=== PATIENT | female | born 1970 | race Caucasian/White ===

== ENCOUNTER → 2018-01-03 | Outpatient (CLI) | payer MEDICARE, MEDICAID ==
[~2018-01-03] MED LIST: ATIVAN1 MG PO; CYCLOBENZAPRINE5 MG PO; DEPAKOTE ER500 MG PO; LEVOTHYROXIN0.025 MG PO; LEXAPRO20 MG PO; LISINOPRIL2.5 MG PO; NORCO 5-325 TA1 EACH PO
[2018-01-03 13:56] LABS: CALCIUM 8.3 mg/dL (8.5-10.1); CREATININE 1.8 mg/dL (0.6-1.3); POTASSIUM 3.9 mmol/L (3.5-5.1)
== END ==
LOC: M.LAB 13:09
PROVIDERS: Internal Medicine Nephrology
DX: N18.3 Chronic kidney disease, stage 3 (moderate) (principal)

== ENCOUNTER → 2018-01-24 | Outpatient (CLI) | payer MEDICARE, MEDICAID | LOC: M.NUC 01-13 11:53 | DX: K76.9 Liver disease, unspecified (principal); N18.3 Chronic kidney disease, stage 3 (moderate); M79.89 Other specified soft tissue disorders ==

== ENCOUNTER → 2018-04-28 | Outpatient (CLI) | payer MEDICARE, MEDICAID ==
[2018-04-28 11:51] LABS: HEMATOCRIT 35.9 % (37.0-47.0); MCH 32.6 pg (26.0-34.0); MCHC 33.4 g/dL (28.0-37.0); MCV 97.7 fL (80.0-100.0); MPV 7.4 fl. (7.2-11.1); RBC 3.67 mil/uL (4.20-5.00); RDW-CV 12.4 % (10.5-14.5); WBC 4.9 thou/uL (4.0-11.0)
[2018-04-28 12:10] LABS: ALBUMIN 2.6 g/dL (3.4-5.0); ALKALINE PHOSPHATASE 58 U/L (46-116); AMMONIA < 10 umol/L (11-32); ANION GAP 7 mmol/L (7-16); BUN 30 mg/dL (7-18); CALCIUM 8.2 mg/dL (8.5-10.1); CHLORIDE 101 mmol/L (98-107); CO2 29 mmol/L (21-32); CREATININE 2.5 mg/dL (0.6-1.3); GLUCOSE 100 mg/dL (70-99); POTASSIUM 4.3 mmol/L (3.5-5.1); SGOT 15 U/L (15-37); SGPT 13 U/L (30-65); SODIUM 137 mmol/L (136-145); TOTAL BILIRUBIN 0.3 mg/dL (<0.1-1.0); TOTAL PROTEIN 6.5 g/dL (6.4-8.2)
== END ==
LOC: M.LAB 11:17
PROVIDERS: Psychiatry & Neurology Addiction Medicine
DX: F31.10 Bipolar disorder, current episode manic without psychotic features, unspecified (principal); I10 Essential (primary) hypertension; E03.9 Hypothyroidism, unspecified; E09.65 Drug or chemical induced diabetes mellitus with hyperglycemia

== ENCOUNTER → 2018-05-12 | Outpatient (CLI) | payer MEDICARE, MEDICAID ==
[2018-05-12 11:42] LABS: CALCIUM 8.5 mg/dL (8.5-10.1); CREATININE 2.4 mg/dL (0.6-1.3); POTASSIUM 4.5 mmol/L (3.5-5.1)
== END ==
LOC: M.LAB 10:55
DX: I12.9 Hypertensive chronic kidney disease with stage 1 through stage 4 chronic kidney disease, or unspecified chronic kidney disease (principal); N18.3 Chronic kidney disease, stage 3 (moderate); Z88.8 Allergy status to other drugs, medicaments and biological substances

== ENCOUNTER → 2018-08-21 | Outpatient (CLI) | payer MEDICARE, MEDICAID ==
[2018-08-21 15:51] LABS: ABSOLUTE LYMPHOCYTES 1.4 thou/uL (0.8-5.3); ABSOLUTE MONOCYTES 0.3 thou/uL (0.0-1.2); ABSOLUTE NEUTROPHILS 2.7 thou/uL (1.6-8.1); BASOPHILS 0.9 %; EOSINOPHILS 0.9 %; HEMATOCRIT 35.3 % (37.0-47.0); HEMOGLOBIN 11.9 gm/dL (12.0-15.0); LYMPHOCYTES 31.6 %; MCH 32.7 pg (26.0-34.0); MCHC 33.9 g/dL (28.0-37.0); MCV 96.5 fL (80.0-100.0); MONOCYTES 6.5 %; MPV 7.4 fl. (7.2-11.1); NUCLEATED RBCS 0 /100WBC; PLATELET COUNT* 198 thou/uL (150-400); POLYS 60.1 %; RBC 3.65 mil/uL (4.20-5.00); WBC 4.5 thou/uL (4.0-11.0)
[2018-08-21 16:12] LABS: ALBUMIN 2.8 g/dL (3.4-5.0); CALCIUM 8.1 mg/dL (8.5-10.1); CREATININE 2.2 mg/dL (0.6-1.3); PHOSPHORUS* 3.4 mg/dL (2.5-4.9); POTASSIUM 4.1 mmol/L (3.5-5.1)
== END ==
LOC: M.LAB 15:23
PROVIDERS: Internal Medicine Nephrology
DX: I12.9 Hypertensive chronic kidney disease with stage 1 through stage 4 chronic kidney disease, or unspecified chronic kidney disease (principal); N18.4 Chronic kidney disease, stage 4 (severe); R80.9 Proteinuria, unspecified; E03.9 Hypothyroidism, unspecified

== ENCOUNTER → 2018-11-17 | Outpatient (CLI) | payer MEDICARE, MEDICAID ==
[2018-11-17 09:24] LABS: HEMATOCRIT 37.9 % (37.0-47.0); HEMOGLOBIN 12.9 gm/dL (12.0-15.0); MCH 32.6 pg (26.0-34.0); MCHC 33.9 g/dL (28.0-37.0); MCV 96.2 fL (80.0-100.0); MPV 7.6 fl. (7.2-11.1); RBC 3.94 mil/uL (4.20-5.00); RDW-CV 12.4 % (10.5-14.5); WBC 4.9 thou/uL (4.0-11.0)
[2018-11-17 09:33] LABS: ALBUMIN 2.7 g/dL (3.4-5.0); CALCIUM 8.2 mg/dL (8.5-10.1); CREATININE 2.3 mg/dL (0.6-1.3); POTASSIUM 4.6 mmol/L (3.5-5.1); TOTAL BILIRUBIN 0.3 mg/dL (<0.1-1.0); TOTAL PROTEIN 6.5 g/dL (6.4-8.2)
== END ==
LOC: M.LAB 09:05
PROVIDERS: Psychiatry & Neurology Addiction Medicine
DX: F33.1 Major depressive disorder, recurrent, moderate (principal)

== ENCOUNTER → 2018-12-25 | Outpatient (CLI) | payer MEDICARE, MEDICAID ==
--- NOTE | 2018-12-25 12:07 | 2DMMODE ---
[place] [address] 2 D/M-MODE ECHOCARDIOGRAM Name: VIDYA BARROSO Room: [facility]#: [id number] Admission: 12/25/18 Attend Phys: Ghazala Macario MD Discharge: Date of : 72 Date of Service: 12/25/18 1206 Report #: [id number] THIS REPORT FOR: //name// APPROVED REPORT Study performed: 12/25/2018 10:27:45 EXAM: Comprehensive 2D, Doppler, and color-flow Echocardiogram Patient Location: Out-Patient BSA: 1.81 HR: 86 bpm BP: 152/95 mmHg Other Information Study Quality: Fair Technically limited study due to patient was unable to lay still. Indications Hypertension/HDD 2D Dimensions IVSd: 9.33 (7-11mm) LVOT Diam: 19.94 (18-24mm) LVDd: 43.45 mm PWd: 9.10 (7-11mm) Ascending Ao: 28.31 (22-36mm) LVDs: 27.34 (25-40mm) Aortic Root: 23.64 mm Volumes Left Atrial Volume (Systole) LA ESV Index: 14.60 mL/m2 Aortic Valve AoV Peak Derik.: 1.97 m/s AO Peak Gr.: 15.49 mmHg LVOT Max P.63 mmHg AO Mean Gr.: 9.16 mmHg LVOT Mean P.11 mmHg LVOT Max V: 1.08 m/s AO V2 VTI: 40.50 cm LVOT Mean V: 0.66 m/s MARLENE (VTI): 1.78 cm2 LVOT V1 VTI: 23.09 cm Mitral Valve E/A Ratio: 1.56 MV Decel. Time: 209.27 ms MV E Max Derik.: 0.93 m/[place] [address] 2 D/M-MODE ECHOCARDIOGRAM Name: VIDYA BARROSO Room: [facility]#: [id number] Admission: 12/25/18 Attend Phys: Ghazala Macario MD Discharge: Date of : 72 Date of Service: 12/25/18 1206 Report #: [id number] MV PHT: 60.69 ms MVA (PHT): 3.63 cm2 TDI E/Lateral E': 7.15 E/Medial E': 7.75 Medial E' Derik.: 0.12 m/s Lateral E' Derik.: 0.13 m/s Pulmonary Valve PV Peak Derik.: 0.97 m/s PV Peak Gr.: 3.78 mmHg Tricuspid Valve RAP Estimate: 5.00 mmHg TR Peak Gr.: 20.82 mmHg RVSP: 25.82 mmHg PA Pressure: 25.82 mmHg Left Ventricle The left ventricle is normal size. There is normal LV segmental wall motion. There is normal left ventricular wall thickness. Left ventricular systolic function is normal. The left ventricular ejection fraction is within the normal range. LVEF is 55-60%. Grade I - abnormal relaxation pattern. Right Ventricle The right ventricle is normal size. The right ventricular systolic function is normal. Atria The left atrium size is normal. The right atrium size is normal. Aortic Valve Aortic valve leaflets are mildly thickened. Mild aortic regurgitation. There is no aortic valvular stenosis. Mitral Valve The mitral valve is normal in structure. There is no mitral valve regurgitation noted. No evidence of mitral valve stenosis. Tricuspid Valve The tricuspid valve is normal in structure. Mild tricuspid regurgitation. Pulmonic Valve The pulmonary valve is normal in structure. There is no [place]mon[place] [address] 2 D/M-MODE ECHOCARDIOGRAM Name: VIDYA BARROSO Room: [facility]#: [id number] Admission: 12/25/18 Attend Phys: Ghazala Macario MD Discharge: Date of : 72 Date of Service: 12/25/18 1206 Report #: [id number] Great Vessels The aortic root is normal in size. IVC is normal in size and collapses >50% with inspiration. Pericardium There is no pericardial effusion. <Conclusion> LVEF is 55-60%. Mild aortic regurgitation. <ELECTRONICALLY SIGNED> By: Yogi Serna MD, [facility] 12/25/181205 05 05 Yogi Serna MD, [facility] /INF
== END ==
LOC: M.CRD 10:24
DX: I08.2 Rheumatic disorders of both aortic and tricuspid valves (principal); I12.9 Hypertensive chronic kidney disease with stage 1 through stage 4 chronic kidney disease, or unspecified chronic kidney disease; N18.4 Chronic kidney disease, stage 4 (severe)

== ENCOUNTER → 2019-01-17 | Outpatient (CLI) | payer MEDICARE, MEDICAID ==
[~2019-01-17] MED LIST changes: +ATIVAN0.5 MG PO; +COLESTIPOL HCL1 G1 PO; +DEPAKOTE ER500 M1 PO; +LASIX 20 MG TAB20 MG PO; +OMEPRAZOLE40 MG PO; +SODIUM BICARBO650 M3 PO
== END ==
LOC: M.RAD 10:39
DX: R60.0 Localized edema (principal); R68.83 Chills (without fever)

== ENCOUNTER → 2019-01-26 | Outpatient (CLI) | payer MEDICARE, MEDICAID ==
[~2019-01-26] MED LIST changes: +SYNTHROID125 MC1 PO
[2019-01-26 13:13] LABS: ALBUMIN 2.9 g/dL (3.4-5.0); CALCIUM 8.3 mg/dL (8.5-10.1); CREATININE 2.1 mg/dL (0.6-1.3); POTASSIUM 4.2 mmol/L (3.5-5.1); TOTAL BILIRUBIN 0.1 mg/dL (<0.1-1.0); TOTAL PROTEIN 6.6 g/dL (6.4-8.2)
== END ==
LOC: M.LAB 12:40
PROVIDERS: Psychiatry & Neurology Addiction Medicine
DX: F31.10 Bipolar disorder, current episode manic without psychotic features, unspecified (principal)

== ENCOUNTER → 2019-01-29 | Day surgery (SDC) | payer MEDICARE, MEDICAID ==
--- NOTE | ~2019-01-29 | OP ---
[facility] [address] [place] [address] OPERATIVE REPORT Name: VIDYA BARROSO Room: [facility].#: [id number] Admission: 01/29/19 Attend Phys: Ashley Lam MD Discharge: Date of : 72 Report #: [id number] THIS REPORT FOR: //name// CC: Ashley Macario DATE OF SERVICE: 01/29/2019 PREOPERATIVE DIAGNOSIS: Anal skin tags. POSTOPERATIVE DIAGNOSIS: Anal skin tags. OPERATIVE PROCEDURE: Excision of anal skin tags using ligature. ANESTHESIA: General endotracheal with 0.5% Marcaine with 1:2 epinephrine infiltrated into the operative site. OPERATIVE PROCEDURE: The patient was placed under general endotracheal anesthesia, placed in a prone position with the gluteal folds taped apart and the perianal orifice was prepped and draped in a sterile fashion. A timeout was taken. IV antibiotic was administered. I began by identifying a large right-sided anal skin tag in the posterior location. It was infiltrated with Marcaine, epinephrine mixture and grasped with small pickups. I then used a ligature to amputate the entire tag till the entrance into the anal verge. A posterior small one was identified, the tail was infiltrated and then amputated with ligature as well. Once it was completed, bleeding points were controlled with cautery. I then placed sponges and ABD pad at the end of the operative procedure. ESTIMATED BLOOD LOSS: 1 mL. The patient was extubated and returned to recovery in stable condition. By: 1317 [id number] Lam MD /nt
--- NOTE | 2019-01-29 07:35 | H ---
[place] [address] HISTORY AND PHYSICAL Name: VIDYA BARROSO Room: [facility]..#: [id number] Admission: Attend Phys: Ashley Lam MD Discharge: Date of : 72 Report #: [id number] THIS REPORT FOR: //name// CC: Ashley Macario ADMITTING DIAGNOSIS: Anal skin tags. HISTORY OF PRESENT ILLNESS: The patient is a 48-year-old female who presents to my office with bothersome anal skin tags, sent by her primary care physician for bleeding and staining and so she was referred for surgical management. PAST MEDICAL HISTORY: Includes hypertension and hypothyroidism. PAST SURGICAL HISTORY: She reports no prior surgical history. MEDICATIONS: Omeprazole, Lasix, Synthroid, lorazepam, divalproex, and lisinopril. SOCIAL HISTORY: She does not have a history of tobacco or alcohol use or abuse. REVIEW OF SYSTEMS: She has no active history of abdominal pain, chest pain, skin changes, cough or dyspnea. PHYSICAL EXAMINATION: GENERAL: She is well developed, well nourished, sitting up well in bed with an assistive device, cane because the patient is legally blind. HEAD, EARS, EYES, NOSE AND THROAT: Unremarkable. NECK: Supple. Normal size. LUNGS: Clear. CARDIAC: Regular rate and rhythm without murmur. ABDOMEN: Soft, nontender. On her rectal exam, large anal skin tag was identified with 2 smaller ones. NEUROLOGIC: She is oriented to person, place and time. IMPRESSION AND PLAN: Residual anal skin tags. I have outlined surgical excision and its risks and benefits and answered her questions. She understands and wishes to proceed with surgical treatment. <ELECTRONICALLY SIGNED> By: Ashley Lam MD 01/29/19 0735 [id number] [id number] Lam MD /nt
[2019-01-29 11:48] LABS: HEMATOCRIT 37.5 % (37.0-47.0); HEMOGLOBIN 12.7 gm/dL (12.0-15.0)
[2019-01-29 11:54] LABS: CALCIUM 8.2 mg/dL (8.5-10.1); CREATININE 2.1 mg/dL (0.6-1.3); POTASSIUM 4.4 mmol/L (3.5-5.1)
--- NOTE | 2019-01-29 17:08 | EKG ---
[place] [address] ELECTROCARDIOGRAM REPORT Name: VIDYA BARROSO Room: [facility]#: [id number] Admission: 01/29/19 Attend Phys: Ashley Lam MD Discharge: Date of : 72 Report #: [id number] THIS REPORT FOR: //name// [facility] Test Date: 2019-01-29 Test Time: 11:41:25 Pat Name: VIDYA BARROSO Department: Room: Gender: F [employer]: : 1970 Requested By: Ashley Lam Order Number: [id number] Reading MD: Yogi Serna Measurements Intervals [place] Rate: 78 P: -46 GA: 115 QRS: 4 QRSD: 72 T: 37 QT: 352 QTc: 401 Interpretive Statements Sinus or ectopic atrial rhythm Borderline short GA interval No previous ECG available for comparison Electronically Signed On 01-29-2019 17:08:20 CDT by Yogi Serna [email or web address] <ELECTRONICALLY SIGNED> By: Yogi Serna MD, [facility] 01/29/19 1708 1141 1141 Yogi Serna MD, FACC /EPI
== END | disposition home or self-care (01) ==
LOC: M.SUR 06:29
PROVIDERS: Surgery
DX: K64.4 Residual hemorrhoidal skin tags (principal); I10 Essential (primary) hypertension; E03.9 Hypothyroidism, unspecified; Z79.899 Other long term (current) drug therapy; Z88.8 Allergy status to other drugs, medicaments and biological substances

== ENCOUNTER → 2019-06-27 | Outpatient (CLI) | payer MEDICARE, MEDICAID ==
[2019-06-27 13:47] LABS: CALCIUM 8.8 mg/dL (8.5-10.1); CREATININE 2.6 mg/dL (0.6-1.3); PHOSPHORUS* 4.6 mg/dL (2.5-4.9); POTASSIUM 4.6 mmol/L (3.5-5.1)
[2019-06-27 13:54] LABS: CALCIUM 8.8 mg/dL (8.5-10.1); CREATININE 2.6 mg/dL (0.6-1.3); PHOSPHORUS* 4.7 mg/dL (2.5-4.9)
== END ==
LOC: M.LAB 13:13
DX: N18.4 Chronic kidney disease, stage 4 (severe) (principal)

== ENCOUNTER → 2019-10-24 | Outpatient (CLI) | payer MEDICARE, MEDICAID ==
[2019-10-24 11:23] LABS: ABSOLUTE LYMPHOCYTES 1.6 thou/uL (0.8-5.3); ABSOLUTE MONOCYTES 0.4 thou/uL (0.0-1.2); ABSOLUTE NEUTROPHILS 2.6 thou/uL (1.6-8.1); BASOPHILS 0.7 %; EOSINOPHILS 0.9 %; HEMATOCRIT 32.7 % (37.0-47.0); HEMOGLOBIN 11.2 gm/dL (12.0-15.0); LYMPHOCYTES 34.3 %; MCH 31.7 pg (26.0-34.0); MCHC 34.3 g/dL (28.0-37.0); MCV 92.5 fL (80.0-100.0); MONOCYTES 7.5 %; MPV 7.5 fl. (7.2-11.1); NUCLEATED RBCS 0 /100WBC; PLATELET COUNT* 166 thou/uL (150-400); POLYS 56.6 %; RBC 3.54 mil/uL (4.20-5.00); WBC 4.7 thou/uL (4.0-11.0)
[2019-10-24 11:48] LABS: ALBUMIN 2.9 g/dL (3.4-5.0); CALCIUM 7.9 mg/dL (8.5-10.1); CREATININE 2.5 mg/dL (0.6-1.3); PHOSPHORUS* 3.8 mg/dL (2.5-4.9); POTASSIUM 4.6 mmol/L (3.5-5.1)
== END ==
LOC: M.LAB 10:43
PROVIDERS: Nurse Practitioner Family
DX: N18.4 Chronic kidney disease, stage 4 (severe) (principal); R80.9 Proteinuria, unspecified

== ENCOUNTER → 2020-01-02 | Outpatient (CLI) | payer MEDICARE, MEDICAID ==
[2020-01-02 14:15] LABS: ABSOLUTE EOSINOPHILS 0.1 thou/uL (0.0-0.7); ABSOLUTE LYMPHOCYTES 1.4 thou/uL (0.8-5.3); ABSOLUTE MONOCYTES 0.2 thou/uL (0.0-1.2); ABSOLUTE NEUTROPHILS 2.8 thou/uL (1.6-8.1); BASOPHILS 0.7 %; EOSINOPHILS 2.4 %; HEMATOCRIT 33.4 % (37.0-47.0); HEMOGLOBIN 11.3 gm/dL (12.0-15.0); MCH 31.1 pg (26.0-34.0); MCV 91.6 fL (80.0-100.0); MONOCYTES 5.4 %; MPV 7.6 fl. (7.2-11.1); NUCLEATED RBCS 0 /100WBC; PLATELET COUNT* 227 thou/uL (150-400); POLYS 61.5 %; RBC 3.64 mil/uL (4.20-5.00); RDW-CV 12.9 % (10.5-14.5); WBC 4.5 thou/uL (4.0-11.0)
[2020-01-02 14:27] LABS: ALBUMIN 3.5 g/dL (3.4-5.0); CALCIUM 8.8 mg/dL (8.5-10.1); CREATININE 2.8 mg/dL (0.6-1.3); PHOSPHORUS* 3.9 mg/dL (2.5-4.9); POTASSIUM 4.5 mmol/L (3.5-5.1)
== END ==
LOC: M.LAB 13:35
PROVIDERS: Nurse Practitioner Family
DX: N18.4 Chronic kidney disease, stage 4 (severe) (principal); R80.9 Proteinuria, unspecified

== ENCOUNTER 2020-03-29 10:47 | Emergency (ER) | payer MEDICARE, MEDICAID ==
[~2020-03-29] VITALS: Ht 165.1 cm; Wt 85.3 kg
[2020-03-29 11:28] LABS: ABSOLUTE EOSINOPHILS 0.1 thou/uL (0.0-0.7); ABSOLUTE LYMPHOCYTES 1.6 thou/uL (0.8-5.3); ABSOLUTE MONOCYTES 0.3 thou/uL (0.0-1.2); ABSOLUTE NEUTROPHILS 2.6 thou/uL (1.6-8.1); BASOPHILS 0.5 %; EOSINOPHILS 2.1 %; HEMATOCRIT 32.9 % (37.0-47.0); HEMOGLOBIN 11.3 gm/dL (12.0-15.0); LYMPHOCYTES 34.2 %; MCH 29.9 pg (26.0-34.0); MCHC 34.2 g/dL (28.0-37.0); MCV 87.3 fL (80.0-100.0); MONOCYTES 6.2 %; MPV 7.4 fl. (7.2-11.1); NUCLEATED RBCS 0 /100WBC; PLATELET COUNT* 212 thou/uL (150-400); RBC 3.77 mil/uL (4.20-5.00); RDW-CV 12.9 % (10.5-14.5); WBC 4.6 thou/uL (4.0-11.0)
[2020-03-29 11:36] LABS: CALCIUM 8.7 mg/dL (8.5-10.1); CREATININE 2.8 mg/dL (0.6-1.3); POTASSIUM 3.9 mmol/L (3.5-5.1)
[2020-03-29 11:40] LABS: ALBUMIN 3.3 g/dL (3.4-5.0); TOTAL BILIRUBIN 0.3 mg/dL (<0.1-1.0); TOTAL PROTEIN 7.1 g/dL (6.4-8.2)
[2020-03-29 12:41] VITALS: BP 145/97
[2020-03-29] MEDS ORDERED: PERCOCET 5-3251 EACH PO (13:14)
== END 2020-03-29 12:42 | disposition home or self-care (01) ==
LOC: M.ERS 10:47
PROVIDERS: Family Medicine
DX: M79.604 Pain in right leg (principal); I10 Essential (primary) hypertension; F41.9 Anxiety disorder, unspecified; F32.9 Major depressive disorder, single episode, unspecified; Z98.890 Other specified postprocedural states; Z88.6 Allergy status to analgesic agent

== ENCOUNTER 2020-07-29 17:16 | Emergency (ER) | payer MEDICARE, MEDICAID ==
[~2020-07-29] VITALS: Ht 157.5 cm; Wt 90.7 kg
[~2020-07-29 17:16] MED LIST changes: +PERCOCET 5-3251 EACH PO
[2020-07-29 18:11] LABS: ABSOLUTE EOSINOPHILS 0.1 thou/uL (0.0-0.7); ABSOLUTE LYMPHOCYTES 1.7 thou/uL (0.8-5.3); ABSOLUTE MONOCYTES 0.3 thou/uL (0.0-1.2); ABSOLUTE NEUTROPHILS 3.1 thou/uL (1.6-8.1); BASOPHILS 0.5 %; EOSINOPHILS 2.5 %; HEMATOCRIT 34.8 % (37.0-47.0); HEMOGLOBIN 11.4 gm/dL (12.0-15.0); LYMPHOCYTES 31.8 %; MCH 28.8 pg (26.0-34.0); MCHC 32.8 g/dL (28.0-37.0); MCV 87.6 fL (80.0-100.0); MPV 7.1 fl. (7.2-11.1); NUCLEATED RBCS 0 /100WBC; PLATELET COUNT* 248 thou/uL (150-400); POLYS 59.2 %; RBC 3.98 mil/uL (4.20-5.00); RDW-CV 14.1 % (10.5-14.5); WBC 5.2 thou/uL (4.0-11.0)
[2020-07-29] MEDS ORDERED: NEURONTIN300 MG PO (18:19)
[2020-07-29] MEDS ORDERED: ANTACID325 MG PO (18:19)
[2020-07-29 18:22] LABS: CALCIUM 8.5 mg/dL (8.5-10.1); CREATININE 2.6 mg/dL (0.6-1.3); POTASSIUM 4.2 mmol/L (3.5-5.1)
[2020-07-29 18:26] LABS: ALBUMIN 3.5 g/dL (3.4-5.0); TOTAL BILIRUBIN 0.3 mg/dL (<0.1-1.0); TOTAL PROTEIN 7.9 g/dL (6.4-8.2)
[2020-07-29 18:30] LABS: SALICYLATE < 2.8 mg/dL (2.8-20.0)
[2020-07-29 18:32] LABS: ACETAMINOPHEN < 2 ug/mL (10-30); ALCOHOL < 10 mg/dL (<10)
[2020-07-29 18:57] LABS: URINE BILIRUBIN NEGATIVE (Negative); URINE BLOOD TRACE (Negative); URINE CLARITY CLEAR; URINE COLOR YELLOW; URINE GLUCOSE-RANDOM NEGATIVE (Negative); URINE KETONES NEGATIVE (Negative); URINE LEUKOCYTES-REFLEX TRACE (Negative); URINE NITRITE-REFLEX NEGATIVE (Negative); URINE PROTEIN 2+ (Negative); URINE UROBILINOGEN 0.2 E.U./dl (0.2-1.0)
[2020-07-29 19:04] LABS: HYALINE CASTS 0-3 Few /LPF (None Seen); MUCUS None Seen strn/LPF (None Seen); SQUAMOUS 4-10 Moderate /LPF (0-3)
[2020-07-29 19:05] LABS: BACTERIA-REFLEX 1-9 Few /HPF (None Seen); CRYSTALS None Seen /LPF (None Seen); URINE RBC 0-2 Rare /HPF (0-2); URINE WBC-REFLEX 6-15 Few /HPF (0-5)
[2020-07-29 19:07] LABS: AMP/METHAMP Negative (Negative); BARBITURATES Negative (Negative); BENZODIAZEPINES Negative (Negative); COCAINE Negative (Negative); METHADONE Negative (Negative); OPIATES Negative (Negative); PCP Negative (Negative); THC Negative (Negative)
[2020-07-29 22:30] VITALS: BP 148/90
== END 2020-07-29 22:30 ==
LOC: M.ERS 17:16
PROVIDERS: Family Medicine
DX: F28 Other psychotic disorder not due to a substance or known physiological condition (principal); Z20.828 Contact with and (suspected) exposure to other viral communicable diseases; R45.851 Suicidal ideations; F39 Unspecified mood [affective] disorder; I10 Essential (primary) hypertension; Z88.6 Allergy status to analgesic agent; Z79.899 Other long term (current) drug therapy; Z98.890 Other specified postprocedural states

== ENCOUNTER → 2021-01-29 | Outpatient (CLI) | payer MEDICARE, MEDICAID ==
[~2021-01-29] MED LIST changes: +ANTACID325 MG PO; +NEURONTIN300 MG PO
== END ==
LOC: M.RAD 10:28
PROVIDERS: ATTEND Internal Medicine
DX: Z12.31 Encounter for screening mammogram for malignant neoplasm of breast (principal)

== ENCOUNTER → 2021-10-09 | Outpatient (CLI) | payer MEDICARE, MEDICAID ==
[~2021-10-09] MED LIST changes: +FUROSEMIDE 40 M40 MG PO; +HETLIOZ20 MG PO; +LEVO-T25 MCG PO; +NORVASC 2.5 MG2.5 M1 PO; +OXTELLAR XR300 MG PO; +PROTONIX40 M2 PO
[2021-10-09 14:25] LABS: HEMATOCRIT 31.9 % (37.0-47.0); HEMOGLOBIN 10.5 gm/dL (12.0-15.0); MCH 29.8 pg (26.0-34.0); MCHC 32.8 g/dL (28.0-37.0); MCV 90.8 fL (80.0-100.0); MPV 6.7 fl. (7.2-11.1); RBC 3.52 mil/uL (4.20-5.00); RDW-CV 14.6 % (10.5-14.5); WBC 3.8 thou/uL (4.0-11.0)
[2021-10-09 14:49] LABS: CALCIUM 8.2 mg/dL (8.5-10.1); CREATININE 3.6 mg/dL (0.6-1.3); PHOSPHORUS* 4.3 mg/dL (2.5-4.9); POTASSIUM 4.5 mmol/L (3.5-5.1)
== END ==
LOC: M.LAB 14:08
PROVIDERS: ATTEND Nurse Practitioner Family
DX: N18.5 Chronic kidney disease, stage 5 (principal)

== ENCOUNTER 2021-10-10 15:04 | Emergency (ER) | payer MEDICARE, MEDICAID ==
[~2021-10-10] VITALS: Ht 154.9 cm; Wt 88.5 kg
[~2021-10-10 15:04] MED LIST changes: -FUROSEMIDE 40 M40 MG PO; -HETLIOZ20 MG PO; -LEVO-T25 MCG PO; -NORVASC 2.5 MG2.5 M1 PO; -OXTELLAR XR300 MG PO; -PROTONIX40 M2 PO
[2021-10-10] MEDS ORDERED: PROTONIX40 M2 PO (15:17)
[2021-10-10] MEDS ORDERED: NORVASC 2.5 MG2.5 M1 PO (15:17)
[2021-10-10] MEDS ORDERED: LEVO-T25 MCG PO (15:18)
[2021-10-10] MEDS ORDERED: FUROSEMIDE 40 M40 MG PO (15:18)
[2021-10-10] MEDS ORDERED: OXTELLAR XR300 MG PO (15:18)
[2021-10-10] MEDS ORDERED: HETLIOZ20 MG PO (15:19)
[2021-10-10 16:35] VITALS: BP 133/76
== END 2021-10-10 16:36 | disposition home or self-care (01) ==
LOC: M.ERS 15:04
DX: S40.022A Contusion of left upper arm, initial encounter (principal); I12.9 Hypertensive chronic kidney disease with stage 1 through stage 4 chronic kidney disease, or unspecified chronic kidney disease; N18.9 Chronic kidney disease, unspecified; F32.9 Major depressive disorder, single episode, unspecified; F41.9 Anxiety disorder, unspecified; Z98.890 Other specified postprocedural states; Z79.899 Other long term (current) drug therapy; Z88.8 Allergy status to other drugs, medicaments and biological substances; X58.XXXA Exposure to other specified factors, initial encounter; Y93.89 Activity, other specified; Y92.89 Other specified places as the place of occurrence of the external cause; Y99.8 Other external cause status